=== PATIENT | female | born 1970 | race Caucasian/White ===

== ENCOUNTER → 2018-08-21 | Outpatient (CLI) | payer OTHER ==
--- NOTE | 2018-08-21 08:40 | US ---
EXAMINATION TYPE: US abdomen complete DATE OF EXAM: 08/21/2018 COMPARISON: NONE CLINICAL HISTORY: 48-year-old female R10.9 abdominal pain. Abnormal labs, GB removed x 16 years ago. Bloating. TECHNIQUE: Multiple sonographic images of the abdomen are obtained. FINDINGS: EXAM MEASUREMENTS: Liver Length: 20.5 cm CBD: 0.4 cm CHD: 0.5 cm Spleen: 13.3 cm Right Kidney: 11.0 x 5.7 x 3.9 cm Left Kidney: 9.0 x 4.5 x 4.7 cm Pancreas: Suboptimal visualization of the pancreatic tail secondary to shadowing from bowel gas. Liver: Enlarged, echogenic, slightly attenuating. No focal lesion seen. Gallbladder: Surgically abse nt Evidence for sonographic Aleman's sign: neg CBD: wnl CHD: wnl Spleen: Borderline enlarged Right Kidney: lateral lower pole cystic appearing lesion - 1.0 x 0.9 x 0.8 cm Left Kidney: wnl Upper IVC: wnl Abd Aorta: No AAA visualized IMPRESSION: 1. Hepatomegaly (20.5 cm) with at least moderate hepatic steatosis. Correlate with LFTs, lipid profil e, and patient risk factors. 2. Status post cholecystectomy. No biliary ductal dilatation. 3. Borderline size to the spleen (13.3 cm).
== END | disposition home or self-care (01) ==
LOC: MERGE 07:40 → RADUSWWP 07:47
PROVIDERS: ATTEND Family Medicine
DX: K76.0 Fatty (change of) liver, not elsewhere classified (principal); R16.0 Hepatomegaly, not elsewhere classified; Z90.49 Acquired absence of other specified parts of digestive tract
CPT/HCPCS: 76700

== ENCOUNTER → 2023-12-01 | Outpatient (CLI) | payer OTHER | LOC: BARWHC3 13:00 | PROVIDERS: ATTEND Surgery | CPT/HCPCS: 99202 ==

== ENCOUNTER 2024-01-17 12:38 | Day surgery (SDC) | payer OTHER ==
[2024-01-16 09:56] VITALS: BMI 41.9
[2024-01-17 13:11] VITALS: TEMP 97
[2024-01-17] MEDS: LACTATED RINGERS 1,000 ML IV SCH (13:28)
[2024-01-17] MEDS: IV FLUID CONTINUATION 1,000 ML IV ONE (13:28)
[2024-01-17] MEDS ORDERED: PROPOFOL 10 MG/ML 20 ML VIAL IV ONE (13:49)
[2024-01-17] MEDS ORDERED: LIDOCAINE 1% INJ 10MG/ML (20 ML MDV) ONE (13:49)
--- NOTE | 2024-01-17 14:08 | P.GSHP ---
History of Present Illness H&P Date: 01/17/24 Chief Complaint: GERD, presurgical 54-year-old female here for EGD. Patient with mild reflux symptoms. No dysphagia. Patient being seen for presurgical evaluation. Past Medical History Past Medical History: Cancer, Hypertension, Liver Disease, Osteoarthritis (OA) Additional Past Medical History / Comment(s): Hx of right breast cancer 2003 with lumpectomy removal of axillary lymph nodes. Fatty liver. History of Any Multi-Drug Resistant Organisms: None Reported Past Surgical History: Adenoidectomy, Breast Surgery, Cholecystectomy, Hysterectomy Additional Past Surgical History / Comment(s): Right breast lumpectomy. Past Anesthesia/Blood Transfusion Reactions: No Reported Reaction, Motion Sickness Smoking Status: Current some day smoker - Past Family History Father Family Medical History: Cancer Additional Family Medical History / Comment(s): Colon cancer. Medications and Allergies Home Medications Medication Instructions Recorded Confirmed Type DULoxetine HCL [Cymbalta] 60 mg PO HS 12/21/23 01/13/24 History atenoloL [Tenormin] 25 mg PO HS 12/21/23 01/13/24 History Gabapentin [Neurontin] 200 mg PO HS 01/16/24 01/16/24 History oxyBUTYnin chloride [oxyBUTYnin 5 mg PO HS 01/16/24 01/16/24 History chloride ER] Allergies Allergy/AdvReac Type Severity Reaction Status Date / Time codeine Allergy Dyspnea Verified 01/17/24 13:02 sulfamethoxazole AdvReac jt pain Verified 01/17/24 13:02 [From Bactrim] trimethoprim [From Bactrim] AdvReac jt pain Verified 01/17/24 13:02 Surgical - Exam Vital Signs Temp Pulse Resp BP Pulse Ox 97.0 F L 67 18 152/76 94 L 01/17/24 13:10 01/17/24 13:10 01/17/24 13:10 01/17/24 13:10 01/17/24 13:10 Physical exam: General: Well-developed, well-nourished HEENT: Normocephalic, sclerae nonicteric Abdomen: Nontender, nondistended Extremities: No edema Neuro: Alert and oriented Assessment and Plan (1) GERD (gastroesophageal reflux disease) Narrative/Plan: Will proceed with EGD at this time. Current Visit: Yes Status: Acute Code(s): K21.9 - GASTRO-ESOPHAGEAL REFLUX DISEASE WITHOUT ESOPHAGITIS SNOMED Code(s): 592108497
--- NOTE | 2024-01-17 14:13 | P.PCN ---
Date of Procedure: 01/17/24 Procedure(s) Performed: Preoperative Dx: GERD, presurgical Postoperative Dx: Gastric ulcer, gastritis Procedure: EGD with Bx Anesthesia: Sedation Endoscopist: Dr. Martinez Specimens: Gastric ulcer Endoscopic Procedure: The patient was on the endoscopy table in the left decubitus position. The Olympus gastroscope was inserted into the oropharynx and passed under direct visualization to the region of the third portion of the duodenum. From that point the scope was slowly withdrawn inspecting all surfaces carefully. There were no neoplastic inflammatory or polypoid lesions throughout the duodenum. The pylorus was widely patent. The stomach was carefully inspected. There was gastric ulcer present in the antrum/prepyloric region. This was mostly in the anterior location. This measured 8 to 9 mm in size. A biopsy of the edge of the ulcer took place. Retroflexion revealed a normal hiatus. The esophagus was then carefully examined. There were no neoplastic inflammatory or polypoid lesions throughout the visualized esophagus. The patient was then taken to the recovery room in stable condition per anesthesia guidelines. Recommendations: Await biopsy results. Begin antiacid therapy. Will require repeat EGD prior to any bariatric intervention.
[2024-01-17 14:43] VITALS: BP 117/63; PULSE 67; RESP 18
== END 2024-01-17 14:52 | disposition home or self-care (01) ==
LOC: ORWHC2ENDO 12:38
PROVIDERS: ATTEND Surgery
DX: K21.9 Gastro-esophageal reflux disease without esophagitis
CPT/HCPCS: 43239; 88305